=== PATIENT | male | born 1960 | race Caucasian/White ===

== ENCOUNTER 2016-12-12 18:01 | Emergency (ER) | payer BC, OTHER ==
[2016-12-12] MEDS ORDERED: MORPHINE SULFATE 10 MG/ML INJ ONE ×2 (18:10→19:06)
[2016-12-12] MEDS ORDERED: ONDANSETRON HCL INJ/PF 4 MG/2 ML SDV ONE (18:10)
[2016-12-12 18:40] LABS: ABSOLUTE BASOPHILS # (AUTO) 0.1 10^3/uL (0.0-0.2); ABSOLUTE EOSINOPHILS # (AUTO) 0.7 10^3/uL (0.0-0.6); ABSOLUTE LYMPHOCYTES (AUTO) 4.5 10^3/uL (0.5-4.7); ABSOLUTE MONOCYTES (AUTO) 1.4 10^3/uL (0.1-1.4); ABSOLUTE NEUT (AUTO) 7.2 10^3/uL (1.7-8.2); BASOPHILS % (AUTO) 0.7 % (0-2); EOSINOPHILS % (AUTO) 4.8 % (0-6); HEMATOCRIT 44.5 % (37.9-51.0); HEMOGLOBIN 15.2 g/dL (13.5-17.0); HGB HCT DIFFERENCE 1.1; LYMPHOCYTES % (AUTO) 32.4 % (13-45); MEAN CORPUSCULAR HEMOGLOBIN 29.6 pg (27.0-33.4); MEAN CORPUSCULAR HGB CONC 34.2 g/dL (32.0-36.0); MEAN CORPUSCULAR VOLUME 87 fl (80-97); RED BLOOD COUNT 5.13 10^6/uL (4.35-5.55); RED CELL DISTRIBUTION WIDTH 13.8 % (11.5-14.0); SEGMENTED NEUTROPHILS % (AUTO) 52.1 % (42-78); WHITE BLOOD COUNT 13.8 10^3/uL (4.0-10.5)
[2016-12-12 18:43] LABS: PARTIAL THROMBOPLASTIN TIME 28.4 SEC (23.5-35.8)
[2016-12-12 18:50] LABS: ALANINE AMINOTRANSFERASE 53 U/L (21-72); ALBUMIN 4.1 g/dL (3.5-5.0); ALKALINE PHOSPHATASE 68 U/L (38-126); ANION GAP 9 (5-19); ASPARTATE AMINO TRANSFERASE 43 U/L (17-59); BILIRUBIN,DIRECT 0.4 mg/dL (0.0-0.4); BILIRUBIN,TOTAL 0.6 mg/dL (0.2-1.3); BLOOD UREA NITROGEN 20 mg/dL (7-20); CALCIUM 9.6 mg/dL (8.4-10.2); CARBON DIOXIDE 27 mmol/L (22-30); CHLORIDE 104 mmol/L (98-107); CREATININE RESULT 0.86 mg/dL (0.52-1.25); GLUCOSE 123 mg/dL (75-110); LIPASE 118.3 U/L (23-300); POTASSIUM 3.7 mmol/L (3.6-5.0); SODIUM 139.7 mmol/L (137-145); TOTAL PROTEIN 6.6 g/dL (6.3-8.2)
[2016-12-12 18:51] LABS: ALCOHOL < 10 mg/dL (NONE DETECTED)
[2016-12-12 19:01] LABS: CREATINE KINASE MB 3.87 ng/mL (<4.55)
[2016-12-12] MEDS ORDERED: ONDANSETRON HCL INJ/PF 4 MG/2 ML SDV IV ONE ×2 (19:09)
[2016-12-12] MEDS ORDERED: MORPHINE SULFATE 10 MG/ML INJ IV ONE (19:09)
[2016-12-12 19:10] LABS: TROPONIN I < 0.012 ng/mL
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
[2016-12-12 19:23] VITALS: BP 159/83
--- NOTE | 2016-12-13 09:11 | EKG REPORT ---
SEVERITY:- BORDERLINE ECG - SINUS RHYTHM MILD NONSPECIFIC LATERAL ST CHANGES CLINICAL CORRELATION AND SERIAL EKGS RECOMMENDED. : Confirmed by: Ori Buenrostro MD 13-Dec-2016 09:10:58
== END 2016-12-12 19:36 | disposition short-term general hospital (02) ==
LOC: ER 18:01
DX: S06.5X9A Traumatic subdural hemorrhage with loss of consciousness of unspecified duration, initial encounter (principal); S06.6X9A Traumatic subarachnoid hemorrhage with loss of consciousness of unspecified duration, initial encounter; S27.0XXA Traumatic pneumothorax, initial encounter; S42.115A Nondisplaced fracture of body of scapula, left shoulder, initial encounter for closed fracture; S01.21XA Laceration without foreign body of nose, initial encounter; S01.81XA Laceration without foreign body of other part of head, initial encounter; S70.02XA Contusion of left hip, initial encounter; S50.12XA Contusion of left forearm, initial encounter; V22.9XXA Unspecified motorcycle rider injured in collision with two- or three-wheeled motor vehicle in traffic accident, initial encounter; M79.632 Pain in left forearm; M79.621 Pain in right upper arm; M25.552 Pain in left hip; R07.81 Pleurodynia; M54.89 Other dorsalgia; R07.1 Chest pain on breathing; I25.10 Atherosclerotic heart disease of native coronary artery without angina pectoris; I25.2 Old myocardial infarction; I10 Essential (primary) hypertension; F17.200 Nicotine dependence, unspecified, uncomplicated; Z79.02 Long term (current) use of antithrombotics/antiplatelets; Z98.61 Coronary angioplasty status; Z88.0 Allergy status to penicillin; Z98.890 Other specified postprocedural states
CPT/HCPCS: 36415; 70450; 71010; 71260; 72125; 73501; 74177; 80053; 80307; 82553; 83690; 84484; 85025; 85610; 85730; 93005; 93010; 96374; 96375; 96376; 99291

== ENCOUNTER 2016-12-21 12:34 | Emergency (ER) | payer BC, OTHER ==
[2016-12-21] MEDS ORDERED: HYDROCODONE/ACETAMINOPHEN 10-325 MG TABLET PO ONE (13:13)
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
[2016-12-21 14:15] LABS: ABSOLUTE BASOPHILS # (AUTO) 0.1 10^3/uL (0.0-0.2); ABSOLUTE EOSINOPHILS # (AUTO) 0.5 10^3/uL (0.0-0.6); ABSOLUTE LYMPHOCYTES (AUTO) 1.7 10^3/uL (0.5-4.7); ABSOLUTE MONOCYTES (AUTO) 0.8 10^3/uL (0.1-1.4); ABSOLUTE NEUT (AUTO) 7.6 10^3/uL (1.7-8.2); BASOPHILS % (AUTO) 0.9 % (0-2); EOSINOPHILS % (AUTO) 4.9 % (0-6); HEMATOCRIT 36.7 % (37.9-51.0); HEMOGLOBIN 12.6 g/dL (13.5-17.0); HGB HCT DIFFERENCE 1.1; LYMPHOCYTES % (AUTO) 15.9 % (13-45); MEAN CORPUSCULAR HEMOGLOBIN 30.4 pg (27.0-33.4); MEAN CORPUSCULAR HGB CONC 34.3 g/dL (32.0-36.0); MEAN CORPUSCULAR VOLUME 89 fl (80-97); MONOCYTES % (AUTO) 7.7 % (3-13); RED BLOOD COUNT 4.13 10^6/uL (4.35-5.55); RED CELL DISTRIBUTION WIDTH 14.3 % (11.5-14.0); SEGMENTED NEUTROPHILS % (AUTO) 70.6 % (42-78); WHITE BLOOD COUNT 10.7 10^3/uL (4.0-10.5)
[2016-12-21 14:21] LABS: PROTHROMBIN TIME 12.5 SEC (11.4-15.4)
[2016-12-21 14:22] LABS: PARTIAL THROMBOPLASTIN TIME 29.9 SEC (23.5-35.8)
[2016-12-21 14:37] LABS: ANION GAP 9 (5-19); BLOOD UREA NITROGEN 15 mg/dL (7-20); CALCIUM 9.6 mg/dL (8.4-10.2); CARBON DIOXIDE 28 mmol/L (22-30); CHLORIDE 98 mmol/L (98-107); CREATININE RESULT 0.61 mg/dL (0.52-1.25); GLUCOSE 133 mg/dL (75-110); POTASSIUM 4.2 mmol/L (3.6-5.0); SODIUM 135.3 mmol/L (137-145)
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
[2016-12-21 16:13] VITALS: BP 125/71
== END 2016-12-21 16:17 | disposition home or self-care (01) ==
LOC: ER 12:34
DX: F07.81 Postconcussional syndrome (principal); G44.309 Post-traumatic headache, unspecified, not intractable; I25.10 Atherosclerotic heart disease of native coronary artery without angina pectoris; G89.29 Other chronic pain; I10 Essential (primary) hypertension; F17.210 Nicotine dependence, cigarettes, uncomplicated; Z98.1 Arthrodesis status; Z88.0 Allergy status to penicillin; I25.2 Old myocardial infarction
CPT/HCPCS: 36415; 70450; 80048; 85025; 85610; 85730; 99284

== ENCOUNTER 2017-06-21 18:30 | Emergency (ER) | payer BC ==
[2017-06-21] MEDS ORDERED: METHOCARBAMOL 500 MG TABLET PO ONE ×2 (19:57→22:15)
[2017-06-21] MEDS ORDERED: KETOROLAC TROMETHAMINE INJ/PF 30 MG/1 ML SDV IV ONE (19:57)
[2017-06-21] MEDS ORDERED: METHYLPREDNISOLONE INJ 125 MG/2 ML SDV IV ONE (19:57)
--- NOTE | 2017-06-21 19:58 | ER Document Report ---
ED Neck/Back Problem - General Chief Complaint: Back Injury Stated Complaint: BACK PAIN Time Seen by Provider: 06/21/17 19:16 Notes: Patient is a 57-year-old male presents emergency department complaining of back spasms with associated chronic back pain. Patient states that he was trying to get 1 of his dogs into the [place] when the dog ran away from him and jerked his back getting him into immediate spasm. Patient denies any leg weakness, numbness or tingling, urinary stool incontinence. Patient able to bear weight but with pain. Patient states that he has a previous back injury with lumbar procedures including rods in the spine that caused him chronic back pain. States it is localized primarily on the right side without radiation into his legs. Patient follows with [facility] and takes 40 mg of OxyContin as well as 5 mg [place] 7 times a day. TRAVEL OUTSIDE OF THE [place] IN LAST 30 DAYS: No - Related Data Allergies/Adverse Reactions: Penicillins Allergy (Verified 12/21/16 12:40) Past Medical History - Social History Smoking Status: Current Every Day Smoker Family History: Reviewed & Not Pertinent - Past Medical History Cardiac Medical History: Reports: Hx Coronary Artery Disease - Patient has had a stent placed in the right coronary artery., Hx Heart Attack, Hx Hypertension Renal/ Medical History: Denies: Hx Peritoneal Dialysis Past Surgical History: Reports: Hx Cardiac Surgery - stent, Hx Orthopedic Surgery - left and right wrist, back surgery x3 - Immunizations Hx Diphtheria, Pertussis, Tetanus Vaccination: Yes - 2008 Review of Systems - Review of Systems Constitutional: No symptoms reported Cardiovascular: No symptoms reported Respiratory: No symptoms reported Gastrointestinal: No symptoms reported Musculoskeletal: See HPI -: Yes All other systems reviewed and negative Physical Exam - Vital signs Vitals: Temp Pulse Resp BP Pulse Ox 98.2 F 87 22 H 171/105 H 97 06/21/17 18:39 06/21/17 18:39 06/21/17 18:39 06/21/17 18:39 06/21/17 18:39 - Notes Notes: PHYSICAL EXAM GENERAL: Alert, interacts well. HEAD: Normocephalic, atraumatic. EYES: Pupils equal, round, and reactive to light. Extraocular movements intact. ENT: Oral mucosa moist, tongue midline. NECK: Full range of motion. Supple. Trachea midline. LUNGS: Clear to auscultation bilaterally, no wheezes, rales, or rhonchi. No respiratory distress. HEART: Regular rate and rhythm. No murmurs, gallops, or rubs. ABDOMEN: Soft, nondistended, nontender. No guarding, rebound, or rigidity.. Bowel sounds present in all 4 quadrants. EXTREMITIES: Moves all 4 extremities spontaneously. No edema, radial and dorsalis pedis pulses 2/4 bilaterally. No cyanosis. Back: Right paralumbar muscular tenderness with pain reproducible palpation. No evidence of spinous process tenderness, deformities or step-offs. NEUROLOGICAL: Alert and oriented x4. Normal speech. PSYCH: Normal affect, normal mood. SKIN: Warm, dry, normal turgor. No rashes or lesions noted. Course - Re-evaluation Re-evalutation: 06/22/17 22:00 Patient is a 57-year-old male is hemodynamic stable, no acute distress and afebrile. Presentation is consistent with back spasm likely due to muscle strain after trying to keep up with his dog. The patient presents with low back pain without signs of spinal cord compression, cauda equina syndrome, infection, aneurysm, or other serious etiology. The patient is neurologically intact. Given the extremely low risk of these diagnoses further testing and evaluation for these possibilities does not appear to be indicated at this time. Patient significantly improved after IV medication and muscle relaxer. The patient has been instructed to return if the symptoms worsen or change in any way. - Vital Signs Vital signs: Temp Pulse Resp BP Pulse Ox 98.5 F 76 18 134/90 H 95 06/21/17 22:26 06/21/17 22:26 06/21/17 22:26 06/21/17 22:26 06/21/17 22:26 Discharge - Discharge Clinical Impression: Back muscle spasm Condition: Good Disposition: HOME, SELF-CARE Additional Instructions: LOW BACK PAIN: Three out of every four people will have an episode of disabling back pain during their lifetime. Most commonly the pain is due to straining of the muscles and ligaments in the low back. Usual treatment includes: (1) Rest on a firm surface. Avoid lying on your stomach. (2) Ice pack the painful area. After a few days, gentle heat may be used intermittently to relax the area, or ice packs can be continued. (3) Medication may be needed -- muscle relaxers and antiinflammatory medicines are commonly used. (4) As the back improves, exercises are prescribed to strengthen the back and abdominal muscles. Your doctor will advise you on the proper care for your back at each stage in your recovery. You may be better in a few days -- or healing may take several weeks. If new symptoms of a "herniated disc" (radiation of pain, numbness, or tingling down the back of the leg or weakness in the leg) occur, you should be re-examined. Further testing may be necessary. PAIN MEDICATION INJECTION: You have received an injection of a pain medication. You should experience significant pain relief within 45 minutes. If this injection was a narcotic -- it will impair your judgement, slow your reaction time and make you sleepy (as well as relieve your pain). Narcotics also can cause nausea. You should not drive, work with machinery, or perform any task requiring mental alertness until all effects of the medication are gone -- six to eight hours. Do not take any alcohol, or sedatives, and do not take any other medication without checking with your physician. MUSCLE RELAXERS: Muscle relaxing medications are usually prescribed for acute muscle spasm or injury to the neck and back. They are often combined with antiinflammatory pain medication for increased relief. You may stop the muscle relaxer when the pain and stiffness have improved. Start the medication again if spasms recur. Muscle relaxers may cause drowsiness, especially with the first dose. Do not operate machinery or drive while under the effects of the medication. Most muscle relaxers last up to 24 hours. Do not combine the medication with alcohol. ICE PACKS: Apply ice packs frequently against the painful area. Many different schedules are recommended, such as "20 minutes on, 20 minutes off" or "one hour ice, two hours rest." If you need to work, you may need to go longer between ice treatments. You should plan to have the area ice packed AT LEAST one fourth of the time. The ice should be applied over the wrap, tape, or splint, or over a layer of cloth -- not directly against the skin. Some ice bags have a built-in cloth and can be put directly on the skin. WARM PACKS: After approximately two days, apply gentle heat (such as a heating pad or hot water bottle) for about 20 to 30 minutes about every two hours -- at least four times daily. Warmth and elevation will help you make a more rapid recovery , and will ease the pain considerably. Do not use HOT heat, and never apply heat for longer than 30 minutes. The continuous heat can invisibly damage skin and muscles -- even when no burn is seen on the surface. Damaged muscles can make you MORE sore. FOLLOW-UP CARE: If you have been referred to a physician for follow-up care, call the physician s office for an appointment as you were instructed or within the next two days. If you experience worsening or a significant change in your symptoms, notify the physician immediately or return to the Emergency Department at any time for re-evaluation. Prescriptions: Ibuprofen [Motrin 800 mg Tablet] 800 mg PO Q8H PRN #30 tab PRN Reason: Methocarbamol [Robaxin 500 mg Tablet] 500 mg PO BID #20 tablet Methylprednisolone [Medrol Dosepack (4 mg/Tab) 21 Tab/Dosepak] 4 mg PO ASDIR PRN #21 tab.ds.pk PRN Reason: Forms: Elevated Blood Pressure Referrals: LEE GIMENEZ MD [ACTIVE STAFF] - Follow up tomorrow
[2017-06-21] MEDS ORDERED: MORPHINE SULFATE 10 MG/ML INJ IV ONE (21:16)
[2017-06-21 22:27] VITALS: BP 134/90
== END 2017-06-21 22:28 | disposition home or self-care (01) ==
LOC: ER 18:30
DX: M62.830 Muscle spasm of back (principal); X50.0XXA Overexertion from strenuous movement or load, initial encounter; Y93.K9 Activity, other involving animal care; M54.9 Dorsalgia, unspecified; G89.29 Other chronic pain; Z79.891 Long term (current) use of opiate analgesic; Z98.890 Other specified postprocedural states; F17.200 Nicotine dependence, unspecified, uncomplicated; I10 Essential (primary) hypertension; I25.10 Atherosclerotic heart disease of native coronary artery without angina pectoris; I25.2 Old myocardial infarction; Z95.5 Presence of coronary angioplasty implant and graft; Z88.0 Allergy status to penicillin
CPT/HCPCS: 99283; 96374; 96375; J2930; J1885; J2270

== ENCOUNTER 2018-03-21 11:01 | Emergency (ER) | payer BC ==
[2018-03-21 11:09] VITALS: BP 132/85
[2018-03-21] MEDS ORDERED: CARISOPRODOL 350 MG TABLET PO ONE (12:36)
--- NOTE | 2018-03-21 12:42 | ER Document Report ---
HPI - HPI Patient complains to provider of: back pain Onset: Other - 2 days Onset/Duration: Persistent Quality of pain: Achy Pain Level: 5 Context: Patient presents complaining of a flareup of his chronic back pain. Patient denies any new injury. Patient states pain is not typical location where he has had flareups in the past. Patient reports the pain radiates into the bilateral lower extremities. Patient denies any fever, urinary retention or incontinence. Patient denies any history of IV drug use. Associated Symptoms: Other - Low back pain. denies: Fever, Vomiting Exacerbated by: Movement Relieved by: Denies Similar symptoms previously: Yes Recently seen / treated by doctor: No - ROS ROS below otherwise negative: Yes Systems Reviewed and Negative: Yes All other systems reviewed and negative - CONSTITUTIONAL Constitutional: DENIES: Fever, Chills - NEURO Neurology: DENIES: Weakness - URINARY Urinary: DENIES: Dysuria, Urgency, Frequency - MUSCULOSKELETAL Musculoskeletal: REPORTS: Extremity pain, Back Pain - DERM Skin Color: Normal Skin Problems: None Past Medical History - General Information source: Patient - Social History Smoking Status: Current Every Day Smoker Chew tobacco use (# tins/day): No Smoking Education Provided: Yes Drug Abuse: None Lives with: Family Family History: Reviewed & Not Pertinent Patient has suicidal ideation: No Patient has homicidal ideation: No - Past Medical History Cardiac Medical History: Reports: Hx Coronary Artery Disease - Patient has had a stent placed in the right coronary artery., Hx Heart Attack, Hx Hypertension Renal/ Medical History: Denies: Hx Peritoneal Dialysis Past Surgical History: Reports: Hx Cardiac Surgery - stent, Hx Orthopedic Surgery - left and right wrist, back surgery x3 - Immunizations Hx Diphtheria, Pertussis, Tetanus Vaccination: Yes - 2008 [facility] Provider Document - CONSTITUTIONAL Agree With Documented VS: Yes Exam Limitations: No Limitations General Appearance: WD/WN, No Apparent Distress Notes: PHYSICAL EXAMINATION: GENERAL: Well-appearing, well-nourished and in no acute distress. HEAD: Atraumatic, normocephalic. EYES: sclera clear, anicteric, conjunctiva are normal. ENT: nares patent, Moist mucous membranes. NECK: Normal range of motion, supple no lymphadenopathy LUNGS: respirations unlabored HEART: Regular rate and rhythm without murmurs EXTREMITIES: Normal range of motion, no pitting or edema. No cyanosis. Gait normal, pt ambulates without difficulty BACK: Linear scar to lower lumbar area lumbar midline tenderness, no deformities or step-offs. No CVA tenderness. NEUROLOGICAL: Cranial nerves grossly intact. Normal speech, normal gait. No saddle anesthesia. No foot drop PSYCH: Normal mood, normal affect. SKIN: Warm, Dry, normal turgor, no rashes or lesions noted. - INFECTION CONTROL TRAVEL OUTSIDE OF THE [place] IN LAST 30 DAYS: No Course - Re-evaluation Re-evalutation: 03/21/18 12:40 The patient presents with low back pain without signs of spinal cord compression , cauda equina syndrome, infection, aneurysm, or other serious etiology. The patient is neurologically intact. Given the extremely risk of these diagnoses further testing and evaluation for these possibilities does not appear to be indicated at this time. Patient has been instructed to return if the symptoms worsen or change in any way. - Vital Signs Vital signs: Temp Pulse Resp BP Pulse Ox 98.2 F 64 18 132/85 H 96 03/21/18 11:08 03/21/18 11:08 03/21/18 11:08 03/21/18 11:08 03/21/18 11:08 Discharge - Discharge Clinical Impression: Low back pain Qualifiers: Chronicity: chronic Back pain laterality: unspecified Sciatica presence: with sciatica Sciatica laterality: sciatica laterality unspecified Qualified Code(s) : M54.40 - Lumbago with sciatica, unspecified side Condition: Stable Disposition: HOME, SELF-CARE Instructions: Ice Packs ([facility]), Low Back Pain ([facility]), Muscle Relaxers ([facility]) Additional Instructions: Return immediately for any new or worsening symptoms Followup with your primary care provider, call tomorrow to make a followup appointment Prescriptions: Carisoprodol [Soma] 250 mg PO TID PRN #15 tablet PRN Reason: Forms: Smoking Cessation Education Referrals: [facility] [Provider Group] - Follow up as needed
== END 2018-03-21 12:49 | disposition home or self-care (01) ==
LOC: ER 11:01
DX: G89.29 Other chronic pain (principal); M54.40 Lumbago with sciatica, unspecified side; F17.200 Nicotine dependence, unspecified, uncomplicated; I25.10 Atherosclerotic heart disease of native coronary artery without angina pectoris; I10 Essential (primary) hypertension; I25.2 Old myocardial infarction; Z95.5 Presence of coronary angioplasty implant and graft
CPT/HCPCS: 99283; J3490

== ENCOUNTER 2018-12-12 09:24 | Emergency (ER) | payer BC ==
[2018-12-12 09:32] VITALS: BP 136/83
[2018-12-12] MEDS ORDERED: KETOROLAC TROMETHAMINE 60 MG/2 ML SDV IM ONE (09:48)
[2018-12-12] MEDS ORDERED: FENTANYL CITRATE INJ/PF 100 MCG/2 ML AMPUL IM ONE (09:48)
[2018-12-12] MEDS ORDERED: DEXAMETHASONE SOD PHOS INJ 10 MG/1 ML VIAL IM ONE (09:48)
[2018-12-12] MEDS ORDERED: LIDOCAINE 5% (700 MG) TRANSDERMAL ADH..PATCH TP ONE (09:49)
--- NOTE | 2018-12-12 09:51 | ER Document Report ---
HPI - HPI Time Seen by Provider: 12/12/18 09:37 Pain Level: 4 Notes: Patient is a 58-year-old male presented to the emergency department chief complaint of low back pain. Patient states he is in pain management taking multiple narcotic pain medications. Patient reports that he is having an acute exacerbation of his pain. Patient states that he is out of his muscle relaxer which is primarily what helps the best. Patient denies any bowel incontinence, urinary retention or saddle anesthesia. Past Medical History - General Information source: Patient - Social History Smoking Status: Current Every Day Smoker Frequency of alcohol use: None Drug Abuse: None Family History: Reviewed & Not Pertinent Patient has suicidal ideation: No Patient has homicidal ideation: No - Past Medical History Cardiac Medical History: Reports: Hx Coronary Artery Disease - Patient has had a stent placed in the right coronary artery., Hx Heart Attack, Hx Hypertension Renal/ Medical History: Denies: Hx Peritoneal Dialysis Past Surgical History: Reports: Hx Cardiac Surgery - stent, Hx Orthopedic Surgery - left and right wrist, back surgery x3 - Immunizations Hx Diphtheria, Pertussis, Tetanus Vaccination: Yes - 2008 [facility] Provider Document - CONSTITUTIONAL Notes: PHYSICAL EXAMINATION: GENERAL: Well-appearing, well-nourished and in no acute distress. HEAD: Atraumatic, normocephalic. EYES: Pupils equal round extraocular movements intact, conjunctiva are normal. ENT: Nares patent NECK: Normal range of motion LUNGS: No respiratory distress Musculoskeletal: Normal range of motion, tenderness to palpation to right lumbar paraspinous muscles. No vertebral tenderness, step-off or deformity. NEUROLOGICAL: Normal speech, normal gait. PSYCH: Normal mood, normal affect. SKIN: Warm, Dry, normal turgor, no rashes or lesions noted. - INFECTION CONTROL TRAVEL OUTSIDE OF THE [place] IN LAST 30 DAYS: No Course - Re-evaluation Re-evalutation: Patient medicated with Toradol, Decadron and Lidoderm patch. Patient discharged home in stable condition with prescription for Lidoderm patches and soma. - Vital Signs Vital signs: Temp Pulse Resp BP Pulse Ox 98.2 F 62 16 136/83 H 97 12/12/18 09:30 12/12/18 09:30 12/12/18 09:30 12/12/18 09:30 12/12/18 09:30 Discharge - Discharge Clinical Impression: Low back pain Condition: Stable Disposition: HOME, SELF-CARE Instructions: Low Back Pain ([facility]) Additional Instructions: Please take medications as prescribed. Follow-up with either your primary care provider or your pain management doctor if not improving over the next 2 to 3 days. Return to the emergency department for any new or worsening symptoms to include loss of control of your bowels, urinary retention or development of fever. Prescriptions: Carisoprodol [Soma] 1 tab PO TID #15 tab Lidocaine [Lidoderm 5% (700 mg) Transdermal Patch] 1 patch TP DAILY #30 adh..pa tc
== END 2018-12-12 10:04 | disposition home or self-care (01) ==
LOC: ER 09:24
DX: M54.5 Low back pain (principal); Z79.899 Other long term (current) drug therapy; F17.200 Nicotine dependence, unspecified, uncomplicated; I25.10 Atherosclerotic heart disease of native coronary artery without angina pectoris; I10 Essential (primary) hypertension; Z95.5 Presence of coronary angioplasty implant and graft
CPT/HCPCS: 99283; 96372; J1885; J3010; J1100